=== PATIENT | male | born 1965 | race Caucasian/White ===

== ENCOUNTER 2023-10-15 04:52 | Day surgery (SDC) | payer BC, OTHER ==
[2023-10-09 14:06] VITALS: BMI 32.4
[2023-10-15 10:52] VITALS: TEMP 97
[2023-10-15 11:56] VITALS: BP 110/76; PULSE 76; RESP 18
== END 2023-10-15 11:40 | disposition home or self-care (01) ==
LOC: JASU-ENDO 04:52
PROVIDERS: ATTEND Internal Medicine Gastroenterology
PROC: 0DBN8ZX Excision of Sigmoid Colon, Via Natural or Artificial Opening Endoscopic, Diagnostic (ICD-10-PCS; principal; 2023-10-15 10:30)
DX: Z12.11 Encounter for screening for malignant neoplasm of colon (principal); D12.7 Benign neoplasm of rectosigmoid junction
CPT/HCPCS: 88305-TC